=== PATIENT | female | born 2005 | race Two or more races ===

== ENCOUNTER 2025-09-22 20:00 | Emergency (ER) | payer SELFPAY | END 2025-09-22 21:08 | disposition home or self-care (01) | LOC: MW.ED 20:00 | DX: O99.891 Other specified diseases and conditions complicating pregnancy (principal); R21 Rash and other nonspecific skin eruption; Z3A.15 15 weeks gestation of pregnancy | CPT/HCPCS: 99282; A9270; 99283 ==